=== PATIENT | male | born 1985 | race Two or more races ===

== ENCOUNTER 2021-01-26 00:53 | Emergency (ER) | payer BC, OTHER ==
[~2021-01-26] VITALS: Ht 170.2 cm; Wt 126.1 kg
[2021-01-26 01:44] LABS: BASOPHILS % (AUTO) 1 % (0-1); EOSINOPHILS % (AUTO) 0 % (1-7); LYMPHOCYTES % (AUTO) 12 % (22-44); MEAN CORPUSCULAR HEMOGLOBIN 29.8 pg (27.5-34.5); MEAN CORPUSCULAR HGB CONC 33.3 g/dL (33.2-36.2); MONOCYTES % (AUTO) 7 % (2-9); NEUTROPHILS % (AUTO) 80 % (42-75); PLATELET COUNT 287 x10^3/uL (130-400); RED BLOOD COUNT 5.06 x10^6/uL (4.38-5.82); RED CELL DISTRIBUTION WIDTH 13.7 % (9.4-14.8)
[2021-01-26 01:49] LABS: MD NO
[2021-01-26 01:52] LABS: ALBUMIN 4.4 g/dL (3.4-5.0); ANION GAP 5 mmol/L (5-15); CALCIUM 9.2 mg/dL (8.5-10.1); CHLORIDE 110 mmol/L (98-107)
[2021-01-26 01:54] LABS: ALANINE AMINOTRANSFERASE 47 U/L (12-78); ALKALINE PHOSPHATASE 67 U/L (45-117); BILIRUBIN,TOTAL 0.2 mg/dL (0.2-1.0); CREATININE 0.95 mg/dL (0.7-1.3); TOTAL PROTEIN 8.6 g/dL (6.4-8.2)
--- NOTE | 2021-01-26 02:40 | NUR ---
SAME TRIAGE NOTE. PT C/O LEG CRAMPS, ESPECIALLY ON THE LEFT, THAT WAKE HIM UP AT NIGHT. ALSO C/O EXCESSIVE THIRST X A COUPLE MONTHS. DENIES ANY MEDICAL HX, REPORTS FAMILY HX OF DM.
--- NOTE | 2021-01-26 02:59 | NUR ---
REPORTED TO ELLIOT PINA.
--- NOTE | 2021-01-26 03:01 | NUR ---
assumed care of pt. report from Yana PINA pt here for leg cramps. pt currently resting on gurney with eyes closed. SO at bedside
--- NOTE | 2021-01-26 03:05 | NUR ---
pt adviosed that urine sample needed. pt ambualted to [facility]
--- NOTE | 2021-01-26 03:14 | NUR ---
Dr Lopez at bedside for recheck
[2021-01-26 03:33] LABS: MICROSCOPIC AUTO
--- NOTE | 2021-01-26 03:42 | NUR ---
chart up for MD recheck
[2021-01-26 04:21] VITALS: BP 119/60
== END 2021-01-26 04:25 | disposition home or self-care (01) ==
LOC: ED 01:23
DX: M79.661 Pain in right lower leg (principal); M79.662 Pain in left lower leg
CPT/HCPCS: 36415; 80053; 81001; 85025; 99283